=== PATIENT | female | born 1960 | race Caucasian/White ===

== ENCOUNTER → 2017-12-23 | Outpatient (CLI) | payer OTHER | LOC: CIMAGING 14:48 | PROVIDERS: ATTEND Obstetrics & Gynecology Gynecology | DX: Z12.31 Encounter for screening mammogram for malignant neoplasm of breast (principal) ==

== ENCOUNTER → 2018-07-02 | Outpatient (CLI) | payer OTHER | LOC: CIMAGING 07:55 | PROVIDERS: ATTEND Family Medicine | DX: M79.675 Pain in left toe(s) (principal); M10.9 Gout, unspecified | CPT/HCPCS: 73660-PO ==